=== PATIENT | female | born 1975 ===

== ENCOUNTER 2017-07-13 07:26 | Inpatient (IN) | payer MEDICAID ==
[2017-07-13 07:42] VITALS: BMI 35.1
[2017-07-13] MEDS ORDERED: cefOXitin IV 2 gm in Dextrose 2 GM/50 ML BAG IVPB ONE (07:42)
[2017-07-13] MEDS ORDERED: Lactated Ringer's 1,000 ML IV SCH (07:45)
[2017-07-13] MEDS: Lactated Ringer's 1,000 ML IV SCH ×2 (07:45→08:46)
[2017-07-13 08:11] LABS: BASO % 0.2 % (0.0-2.0); EOS # 0.1 K/uL (0.0-0.7); EOS % 0.6 % (0.0-4.0); HEMATOCRIT 36.3 % (34.0-47.0); LYMPH % 12.8 % (20.0-40.0); MEAN CELL VOLUME 93.1 fL (81.0-99.0); MEAN CORPUSCULAR HGB CONC 34.4 g/dL (33.0-37.0); MEAN PLATELET VOLUME 9.6 fL (7.2-11.7); MONO # 0.4 K/uL (0.0-0.8); MONO % 5.5 % (0.0-10.0); RED CELL DISTRIBUTION WIDTH 14.2 % (11.5-14.5); WHITE BLOOD COUNT 8.1 K/uL (4.8-10.8)
[2017-07-13 08:16] LABS: RBC URINE 1 /hpf (0-3); URINE BACTERIA OCC (<OCC); URINE BILIRUBIN NEGATIVE (NEGATIVE); URINE BLOOD NEGATIVE (NEGATIVE); URINE COLOR Straw (YELLOW); URINE GLUCOSE (UA) NORMAL (Normal); URINE KETONE NEGATIVE (NEGATIVE); URINE LEUKOCYTE ESTERASE NEG Leu/uL (Negative); URINE PROTEIN NEGATIVE (NEGATIVE); URINE UROBILINOGEN NORMAL mg/dL (0.2-1.0); WBC URINE 1 /hpf (0-5)
[2017-07-13 08:29] LABS: ALB/GLOB RATIO 1.2 (1.0-2.1); ALKALINE PHOSPHATASE 136 U/L (38-126); ALT/SGPT 34 U/L (9-52); AST/SGOT 22 U/L (14-36); BILIRUBIN,TOTAL 0.5 mg/dL (0.2-1.3); BLOOD UREA NITROGEN 6 mg/dL (7-17); CALCIUM 8.2 mg/dl (8.6-10.4); CARBON DIOXIDE 25 mmol/L (22-30); CHLORIDE 103 mmol/L (98-107); GFR AFRICAN-AMERICAN > 60; GLUCOSE,RANDOM 88 mg/dL (65-105); POTASSIUM 3.8 mmol/L (3.6-5.2); SODIUM 136 mmol/L (132-148); TOTAL PROTEIN 6.5 g/dL (6.3-8.3)
[2017-07-13] MEDS ORDERED: Sodium Citrate/Citric Acid 15 ml Sol ONE (08:34)
[2017-07-13] MEDS ORDERED: Oxytocin 20 units in LR 2,000 ML IV ONE (08:34)
[2017-07-13] MEDS ORDERED: Oxytocin 10 Units/ml Inj ONE (08:38)
[2017-07-13] MEDS ORDERED: Phenylephrine 10 mg/ml Inj ONE (08:49)
[2017-07-13] MEDS ORDERED: Morphine 1 mg/ml preservative-free Inj(Duramorph) ONE (08:52)
[2017-07-13] MEDS ORDERED: cefOXitin 2 GM in Dextrose 5% In Water 100 ML IV ONE (09:00)
[2017-07-13] MEDS ORDERED: Sodium Citrate/Citric Acid 15 ml Sol PO STA ×2 (09:00→10:00)
[2017-07-13] MEDS ORDERED: cefOXitin 2 GM in Dextrose 5% In Water 100 ML IV SCH (09:00)
[2017-07-13] MEDS ORDERED: cefOXitin 2 GM in Sodium Chloride 0.9% 100 ML IV SCH (12:00)
--- NOTE | 2017-07-13 14:12 | PCM.SURG1 ---
Surgeon's Initial Post Op Note - Surgeon's Notes Surgeon: Lilly Catherine MD Weatherization Coordinator: Leodan Sibley MD; 2nd Weatherization Coordinator: Yajaira Matthews MS3 Type of Anesthesia: Spinal Anesthesia Administered By: Jeremie Cagle DO Pre-Operative Diagnosis: 39 weeks, Previous C/S; desires permanent sterilization. H/O macrosomic Operative Findings: Live male infant, LOT position, 's 9/9, weight 9lb 2oz. Normal uterus with evidence of leiomyomata; normal ovaries and fallopina tubes bilaterally. Post-Operative Diagnosis: Same Operation Performed: Repeat LTCS, bilateral tubal ligation Specimen/Specimens Removed: Placenta; portion of fallopian tubes, bilaterally Estimated Blood Loss: EBL {In ML}: 800 (U.O. 600mL; IVFs 1400 mL LR with 40 Units pitocin) Blood Products Given: N/A Drains Used: No Drains Post-Op Condition: Good Date of Surgery/Procedure: 07/13/17 Time of Surgery/Procedure: 14:00
[2017-07-13] MEDS ORDERED: HYDROmorphone 0.5 mg/0.5 ml ISec IVP ONE (17:45)
[2017-07-13] MEDS: Simethicone 80 mg Chewtab PO SCH ×2 (18:50→21:43)
--- NOTE | 2017-07-14 00:09 | OBDS ---
DELIVERY PERSONNEL Delivery Doctor: Marissa Catherine MD Motor Coach Supervisor: Deja Foster RN Anesthesiologist: Dr Lupe MD MATERNAL INFORMATION Delivery Anesthesia: Spinal Medications in Delivery: 40 units of pitocin, mefoxin 2G Estimated Blood Loss (ml): 800 Placenta Cultured: Yes Maternal Complications: None RN Comments: liveborn male , 9/9, mother and baby in stable condition on room air, vital s WNL Provider Comments: Uncomplicated repeat LTCS with BTL performed; atraumatic delivery of live male in norris. LOT postion, 's 9/9, weight 9lb 2oz. Hemostasis assured throughout the procedure LABOR SUMMARY EDC: 07/19/2017 00:00 No. Babies in Womb: 1 Attempted: No Labor Anesthesia: None LABOR INFORMATION Reason for Induction: Not Applicable Oxytocin: N/A Group B Beta Strep: Negative Steroids Given: None Reason Steroids Not Administered: Not Applicable STAGES OF LABOR Stage 3 hrs: 0 Stage 3 min: 1 VAGINAL DELIVERY Episiotomy: None Laceration Extension: N/A Laceration Type: None CSECTION DELIVERY Primary Indication: Repeat Elective Secondary Indication: N/A CSection Urgency: N/A CSection Incidence: N/A Labor: N/A Elective: N/A CSection Incision: N/A Sterilization Procedure: [place] Uterine Closure: Single-layer closure BABY A INFORMATION Delivery Date/Time: 07/13/2017 13:00 Method of Delivery: Born in Route : No : N/A Forceps: N/A Vacuum Extraction: N/A Shoulder Dystocia : No SHOULDER DYSTOCIA BABY A Delivery Date/Time: 07/13/2017 13:00 PRESENTATION/POSITION BABY A Presentation: Cephalic Cephalic Presentation: Vertex Vertex Position: Left Occipital Transverse Breech Presentation: N/A PLACENTA INFORMATION BABY A Placenta Delivery Time : 07/13/2017 13:01 Placenta Method of Delivery: Manual Removal Placenta Status: Delivered SCORES BABY A Heart Rate 1 min: >100 bpm Resp Effort 1 min: Good Cry Reflex Irritability 1 min: Cough or Sneeze or Pulls Away Muscle Tone 1 min: Active Motion Color 1 min: Body Gandy, Extremities Blue Resuscitation Effort 1 min: Tactile Stimulation SCORE 1 MIN: 9 Heart Rate 5 min: >100 bpm Resp Effort 5 min: Good Cry Reflex Irritability 5 min: Cough or Sneeze or Pulls Away Muscle Tone 5 min: Active Motion Color 5 min: Body Gandy, Extremities Blue Resuscitation Effort 5 min: N/A SCORE 5 MIN: 9 INFANT INFORMATION BABY A Gestational Age at Delivery: 39.1 Gestational Status: Term Outcome : Liveborn Infant Condition : Stable Infant Sex: Male IDENTIFICATION/MEDS BABY A ID Band Number: [id number] ID Band Location: Left Leg; Left Arm Sensor Applied: Yes Sensor Number: [id number] Sensor Location : Cord Clamp Vitamin K Given : Not Given Erythromycin Given: Not Given WEIGHT/LENGTH BABY A Infant Birthweight (gms): 4150 Infant Weight (lb): 9 Weight (oz): 2 Infant Length Inches: 20.00 Infant Length cms: 50.8 CORD INFORMATION BABY A No. Cord Vessels: 3 Nuchal Cord : N/A Cord Blood Taken: Yes Suction: Mouth; Nose ASSESSMENT BABY A Complications: None Physical Findings at Delivery: Within Normal Limits Infant Respirations: Appears Normal Hose Builder/ALS Called : No Care By: Dr Monroe Transferred To: Remains with Mother
--- NOTE | 2017-07-14 00:35 | OBADHP ---
Datetime: 07/14/2017 00:14 IP Adm Impression Other: Desires permanent sterilization Admit Comment, IP Provider: Patient presented 07/13/17 approximately 0715 hours for elective repeat C/S and BTL. [employer] translating services used for obtaining consent for surgery 42 y.o. P3013, LMP unsure, TASHA 07/19/17, EGA 39w 1d for elective repeat C/S and BTL. (+)AFM; raven es LOF, VB, Ctx. Drank glass of water at 0700hours. P Ob: x 1, 1996, male 7 1/2 lbs, [place]. C/S x 2: 2010, male 7 1/2 lb; 2012, female, 10lb ( patient states NO GDM) - both, [facility]; no complications. 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 diagnosed fibroids this - anterior. 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 PMH: denies PSH: C/S x 2. 208, broken right lower extremity, ?ORIF? NKDA Meds: PNV - QD Soc Hx: denies tobacco, illicit drug or EtOH use. Lives with FOB and her 2 younger children. 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 Fam hx: Mother alive 72 - HTN, DM. Father alive 74 - HTN. Mat aunt - cancer of the blood P.E.: as above. Obese, in NAD. Awake, alert, oriented to time, person and place. Pleasant and co operative Assessment: 42 y.o. P3013, prev C/S x 2 for elective C/S and BTL. Category 1 tracing. R/B/C disc ussed; sterilization reaffirmed. Consents signed, dated, witnessed and placed in chart. Clinically s table., Plan: 1) Admit 20 NPO 3) IVFs 4) Admission labs 5) Continuous EFM 6) Abdominal prep and shave 7) Hernandez to gravity 8) Notify anesthesia 9) Notify peds 10) Mefoxin 11) director call to O.R. Pelvic Type - PN: Not Done Extremities - PN: Normal Abdomen - PN: Normal Back - PN: Normal Breast - PN: Not Done Lungs - PN: Normal Heart - PN: Normal Thyroid - PN: Not Done Neurologic - PN: Normal HEENT - PN: Normal General - PN: Normal Presentation-Admit: Vertex FHR - Baseline A Provider: 150 Contraction Comments Provider: occasional Comments, ACOG Physical Exam: Abdomen: Obese. Soft. Non tender. Fundal height 41 cm All other systems reviewed and are negative Gestation - Est Wks by US: 39w 1d IP Hx Assessment: The History has been Reviewed and is Current Vital Signs Provider: Reviewed; Within Normal Limits IP Chief Complaint: Scheduled Section NICHD Variability Prov Fetus A: Moderate 6-25bpm NICHD Accel Fetus A IP Provider: [id number] FHR Category Provider Fetus A: Category I NICHD Decel Fetus A IP Provider: None Dilatation, Provider: deferred Genitourinary Exam: Not Done DTRs - PN: Not Done EGA AdmitDate IP: 39.2 IP Adm Impression: Term, intrauterine ; No Active Labor IP Admit Plan: Admit to unit; Initiate Section protocol
--- NOTE | 2017-07-14 03:54 | OP ---
PROCEDURE DATE: 07/13/2017 PREOPERATIVE DIAGNOSES: A 39 weeks' gestation, previous section, history of macrosomic infant, desires permanent sterilization. POSTOPERATIVE DIAGNOSES: A 39 weeks' gestation, previous section, history of macrosomic infant, desires permanent sterilization. SURGEON: Lilly Catherine MD. POLITICAL AIDE: Leodan Sibley MD. SECOND RN CASE MANAGER: Francheska Matthews MS-3. ANESTHESIA TYPE: Spinal. ANESTHESIOLOGIST: Jeremie Cagle DO. OPERATIVE FINDINGS: Live male infant from the left occipital transverse position, weight 9 pounds 2 ounces, Apgars 9 and 9. The patient had normal uterus with evidence of leiomyomata as well as normal ovaries and fallopian tubes bilaterally. OPERATION PERFORMED: Repeat transverse lower uterine segment section and Chayito method for bilateral tubal ligation. SPECIMENS: Portions of fallopian tubes bilaterally and the placenta. ESTIMATED BLOOD LOSS: 800 mL. URINE OUTPUT: 600 mL. INTRAVENOUS FLUIDS: 1400 mL of lactated Ringer's. The patient received a total of 40 units of Pitocin. BLOOD PRODUCTS GIVEN: None. COMPLICATIONS: None. PROCEDURE IN DETAIL: The patient was taken to the operating room after having obtained informed consent for the anticipated procedure. This included discussion of possible risks, complications including, but not limited to infection requiring continued antibiotics, hemorrhage requiring blood transfusion, repair of any damage to internal organs, possible hysterectomy. As the patient also desires permanent sterilization, a review of potential complications of failure rate of approximately 3 in [id number] was discussed. The patient reaffirmed her desire for permanent sterilization. Prior to being transferred to the operating room, the patient received Mefoxin 2 g via IV push and a Hernandez catheter was inserted under sterile condition. The patient was transferred then to the operating room. She was placed on the operating room table in sitting position where spinal anesthesia was administered without incident. She was immediately repositioned to a supine position. Abdomen was prepped and she was draped in the usual sterile fashion. After assuring an adequate level of anesthesia using the scalpel, a Pfannenstiel incision was made through the previous scar. The incision was carried down through the subcutaneous tissue using the Bovie electrocautery. The fascia was identified. It was nicked in the midline and the incision was extended bilaterally also using the Bovie electrocautery. The rectus muscle was dissected off the overlying fascia. By a sharp dissection, the rectus muscle was in midline and the peritoneum was entered without incident. The vesicouterine reflection was identified and a bladder flap was created. A transverse incision was then made on the lower uterine segment. Amniotomy was performed and a moderate amount of clear amniotic fluid was retrieved. Atraumatic delivery of the with findings as above. On the operative field, the infant's mouth and nose were bulb suctioned as the umbilical cord was doubly clamped and cut. The was handed to the negative assembler in attendance. Manual extraction was performed for removal of the placenta. It was grossly intact with three vessels present in the cord. The uterus was then brought onto the operative field for closure. This was done in one layer using 1-0 Vicryl in a running interlocking fashion. To assure hemostasis, 2 [id number] stitches were placed using 2-0 Monocryl. Attention was then directed to the right fallopian tube in the mid-isthmic portion where there was a clear section in the mesosalpinx. This area was grasped with a [place] clamp. Using plain catgut, 2 free ties were placed until blanching of the tube was noted. The intervening segment was then pierced with a Metzenbaum and a portion of the fallopian tube was resected. This was submitted to pathology for confirmation. Hemostasis was assured on the ligated end. A similar procedure was performed on the left fallopian tube. Adequate hemostasis was assured. Attention was then directed posteriorly to the uterus. Copious irrigation was performed. The uterus was returned to the abdominal cavity. Paracolic gutters were cleared of all debris. The parietal peritoneum was reapproximated using 2-0 chromic in a running fashion. The muscle was reapproximated also using 2-0 chromic in a running fashion. The fascia was reapproximated using 0 Vicryl in a running fashion in one half. The subcutaneous tissue was reapproximated using plain catgut in a running fashion. The skin was reapproximated using surgical clips. The patient was then repositioned in a frog-leg manner. Bimanual examination of the uterus was performed and the uterus was emptied of all additional clots and blood. It was firm and contracted. The patient was subsequently transferred to the recovery room in stable condition. The baby was transferred to [facility] also in stable condition. Both, mom and infant were bonding at the time of being transferred. Dr. Leodan Sibley was present throughout the entire procedure from beginning to end. His presence was necessary for 1. Adequate visualization of the operative field at all times. 2. The safe atraumatic delivery of the . 3. Assuring adequate hemostasis throughout. Lilly MD Florin
[2017-07-14] MEDS: Oxycodone/Acetaminophen 5/325 mg Tab PO PRN ×3 (05:43→21:06)
[2017-07-14 08:55] LABS: BASO % 0.3 % (0.0-2.0); EOS % 0.4 % (0.0-4.0); LYMPH # 1.1 K/uL (1.0-4.3); LYMPH % 10.6 % (20.0-40.0); MEAN CELL VOLUME 92.9 fL (81.0-99.0); MEAN CORPUSCULAR HEMOGLOBIN 32.8 pg (27.0-31.0); MEAN CORPUSCULAR HGB CONC 35.3 g/dL (33.0-37.0); MEAN PLATELET VOLUME 9.8 fL (7.2-11.7); MONO # 0.4 K/uL (0.0-0.8); MONO % 3.6 % (0.0-10.0); RED CELL DISTRIBUTION WIDTH 14.2 % (11.5-14.5)
[2017-07-14] MEDS: Simethicone 80 mg Chewtab PO SCH ×4 (10:24→22:39)
--- NOTE | 2017-07-14 12:49 | OBPPN ---
Datetime: 07/14/2017 12:46 PP Pain Prov: Within normal limits PP Nausea Prov: Denies PP Flatus Prov: Yes PP Heart Prov: Normal PP Lungs Prov: Normal PP Abdomen/Uterus Prov: Normal PP Lochia Prov: Normal PP Vulva/Perineum Prov: Normal PP CVA Tenderness Prov: Normal PP Extremities Prov: Normal PP C/S Incision Prov: Normal PP Progress Prov: Normal PP Impression Prov: Normal progression PP Plan Prov: Continue present management PP Progress Note Prov: S-patient reports that her pain is well controlled.denies nausea, vomiting, c hest pain, shortness of breath Ambulating and voiding without difficulty O-VSS Afebrile Fundus firm and below umbilicus extremities no calf tenderness incision clean, dry AND INTACT A/P Patient s/p csection pod 1 doing well -continue routine post op care Vital Signs Provider PP: Reviewed; Within Normal Limits
[2017-07-14] MEDS ORDERED: Bisacodyl 5mg EC Tab PO ONE (17:52)
[2017-07-15] MEDS: Oxycodone/Acetaminophen 5/325 mg Tab PO PRN ×4 (04:35→22:33)
[2017-07-15] MEDS: Simethicone 80 mg Chewtab PO SCH ×4 (09:17→21:32)
--- NOTE | 2017-07-15 20:34 | OBPPN ---
Datetime: 07/15/2017 08:14 PP Pain Prov: Within normal limits PP Nausea Prov: Denies PP Flatus Prov: Yes PP BM Prov: No PP Impression Prov: Normal progression PP Plan Prov: Continue present management PP Progress Note Prov: Patient seen and examined at bedside. Per nursing no acute events overnight. Patient is doing well, pain at the incision with pain scale 6/10. Lochia is mild. Ambulating and tole rating diet. Urinating with difficulty. Passing flatus, no BM. Breast and bottle feeding. Denies head aches, dizziness, cp, palpitations, sob, urinary symptoms. VS: 125/73 81 97.5 Gen: AAOx3 CV: RRR Lungs: CTA B/L Abd: Soft, appropriately tender, incision c/d/i with marco a, fundus firm 2 fingerbreaths below um bilicus Ext: No clubbing, cyanosis, edema; no calf tenderness Labs: 8.1>12.5/36.3<174 10.0>11.3/32.0<162 B positive Rubella immune A/P: 42 year old at 39w1d s/p RLTCD with BTL POD#2 -Stable, afebrile -Pain control with motrin and percocet prn -Encourage ambulation and hydration -Encourage -Continue routine care -Anticipate d/c home tomorrow -Plan discussed with attending Luci Tolentino DO PGY-1 Attending Note: pateint was seen and evaluated by me with the residents earlier this morning. I agree with the documentaiton of events as described. Vital Signs Provider PP: Reviewed; Within Normal Limits
[2017-07-16] MEDS ORDERED: Fluticasone Nasal 50 mcg/Spray NAS SCH (08:00)
--- NOTE | 2017-07-16 08:18 | OBPPN ---
Datetime: 07/16/2017 08:14 PP Pain Prov: Within normal limits PP Nausea Prov: Denies PP Flatus Prov: Yes PP BM Prov: Yes PP Breasts Prov: Normal PP Heart Prov: Normal PP Lungs Prov: Normal PP Abdomen/Uterus Prov: Normal PP Lochia Prov: Normal PP Vulva/Perineum Prov: Normal PP CVA Tenderness Prov: Normal PP Extremities Prov: Normal PP C/S Incision Prov: Normal PP Progress Prov: Normal PP Impression Prov: Normal progression PP Plan Prov: Continue present management; Discharge PP Progress Note Prov: Patient seen and examined at bedside.Pt reports pain is controlled , amblaitn g, voiidng, passing flatus, +BM, dnies any heavy bleeding. pt is breast feeding, toleratign reuglar d iet. Denies headaches, dizziness, cp, palpitations, sob, urinary symptoms. VS: 125/73 81 97.5 Gen: AAOx3 Breast: Nt, non engorabe b/l CV: RRR Lungs: CTA B/L Abd: Soft, appropriately tender, incision c/d/i with marco a, fundus firm below umbilicus, minima l lochia, non fouls smelling Ext: No clubbing, cyanosis, edema; no calf tenderness Labs: 8.1>12.5/36.3<174 10.0>11.3/32.0<162 B positive Rubella immune A/P: 42 year old at 39w1d s/p RLTCD with BTL POD#3 dc home rto clinic 1 week incison check precatin given Vital Signs Provider PP: Reviewed; Within Normal Limits
--- NOTE | 2017-07-16 08:23 | OBDCSUM ---
Datetime: 07/16/2017 08:22 Discharged to, Provider: Home Follow up at, Provider: Clinic Disch Instr Activity: Normal activity Disch Instr Diet: Regular Discharge Instructions, Provider: Routine instructions given Discharge Diagnosis, Provider: Term Delivered Discharge Time: 07/16/2017 08:22 Follow up in weeks, Provider: 1 week, 6 weeks Disch Referrals: None Contraception discussed, Prov: Yes Disch Activity Restrictions: No sexual activity; Nothing in vagina - [place], tampons, douche Discharge Comment, Provider: precautins given Contraception after Delivery: Not Planning to Use
[2017-07-16 08:35] VITALS: BP 112/63; PULSE 71; RESP 18; TEMP 98.4; O2SAT 97
[2017-07-16] MEDS: Simethicone 80 mg Chewtab PO SCH (10:00)
== END 2017-07-16 15:00 | disposition home or self-care (01) | DRG 371 ==
LOC: C.4D 07:26 → C.4M 17:00
PROVIDERS: ADMIT Obstetrics & Gynecology; ATTEND Obstetrics & Gynecology
PROC: 10D00Z1 Extraction of Products of Conception, Low, Open Approach (ICD-10-PCS; principal; 2017-07-13)
PROC: 0UB70ZZ Excision of Bilateral Fallopian Tubes, Open Approach (ICD-10-PCS; 2017-07-13)
DX: O34.211 Maternal care for low transverse scar from previous cesarean delivery (principal); Z30.2 Encounter for sterilization; Z3A.39 39 weeks gestation of pregnancy; Z37.0 Single live birth